=== PATIENT | female | born 1935 | race Caucasian/White ===

== ENCOUNTER 2020-08-13 08:31 | Outpatient (CLI) | payer MEDICARE, SELFPAY ==
--- NOTE | ~2020-08-13 | CT_ITS ---
EXAMINATION: CT chest high resolution [facility] EXAM DATE: 08/13/2020 09:08 INDICATION: ILD R91.1 - Solitary pulmonary nodule. TECHNIQUE: Spiral CT of the chest without contrast. HRCT. Axial, coronal and sagittal images were re viewed. Coronal maximum intensity pixel images of chest reviewed. The dose-length product (DLP) for this examination was 472.76 mGy-cm. The exposure was tailored according to patient size (auto mA ex posure control), and iterative reconstruction (ASIR) was used as additional dose reduction technique. Comparison is made to prior examination from 06/17/2018. FINDINGS: There is mild emphysema and bronchiectasis. No evidence of interlobular septal thickening on the HRCT. There are regions of linear scarring, and a right lower lobe calcified granuloma which a ppear unchanged. Previously described right middle lobe nodule may have some faint calcification now, consistent with granuloma. No suspicious pulmonary opacities. There are no pleural or pericardial e ffusions. Tracheobronchial tree is patent. There is no mediastinal, hilar or axillary lymphadenop athy. There is no pneumothorax. Heart normal in size. There is mild coronary arterial calcifica tion, arterial sclerosis. Upper abdomen is unremarkable. Severe mid thoracic dextroscoliosis. IMPRESSION: 1. Postinfectious residua. 2. Mild emphysema and bronchiectasis. 3. Dextroscoliosis. Reviewed, dictated and finalized at location A. ECTOR SET UP AND LAY OUT
== END 2020-08-13 08:32 | disposition home or self-care (01) ==
PROVIDERS: PCP Family Medicine; Visit Provider Nurse Practitioner Family
DX: R91.1 Solitary pulmonary nodule (principal); J84.10 Pulmonary fibrosis, unspecified; J43.9 Emphysema, unspecified; J47.9 Bronchiectasis, uncomplicated; M41.84 Other forms of scoliosis, thoracic region
CPT/HCPCS: 71250

== ENCOUNTER 2021-10-07 09:56 | Outpatient (CLI) | payer MEDICARE, SELFPAY | END 2021-10-07 09:57 | disposition home or self-care (01) | LOC: ANHAUDIO 09:57 | PROVIDERS: PCP Family Medicine; Referring Provider Otolaryngology; Visit Provider Otolaryngology | DX: H91.93 Unspecified hearing loss, bilateral (principal) | CPT/HCPCS: 92557; 92567 ==

== ENCOUNTER → 2021-10-25 09:55 | Outpatient (CLI) | payer MEDICARE, SELFPAY ==
[2021-10-25 20:22] LABS: SARS-CoV-2 RNA PCR Negative
== END ==
PROVIDERS: PCP Family Medicine; Visit Provider Physician Assistant
DX: Z20.822 Contact with and (suspected) exposure to COVID-19 (principal)
CPT/HCPCS: C9803; U0003; U0005

== ENCOUNTER 2022-03-04 13:53 | Outpatient (RCR) | payer MEDICARE, SELFPAY | END 2022-03-04 23:59 | disposition home or self-care (01) | LOC: ANHAUDIO 13:53 | PROVIDERS: PCP Family Medicine; Visit Provider Family Medicine | DX: Z46.1 Encounter for fitting and adjustment of hearing aid (principal) | CPT/HCPCS: 99199 ==

== ENCOUNTER → 2023-02-16 12:49 | Outpatient (CLI) | payer MEDICARE, SELFPAY ==
--- NOTE | ~2023-02-16 | XR_ITS ---
XR chest 2V 02/16/2023 13:14 Indication: Acute upper respiratory infection Procedure: PA and lateral views of the chest Comparison: 02/27/2016 Findings: Heart size is normal. There are bilateral interstitial infiltrates. No pleural effusion or pneumothorax. No acute osseous abnormality. There is scoliosis. No acute osseous abnormality. Impression: 1: Bilateral perihilar interstitial infiltrates, which may represent edema or pneumonia. Reviewed, dictated and finalized at location L. Impression: 1: Bilateral perihilar interstitial infiltrates, which may represent edema or p neumonia.
== END ==
PROVIDERS: PCP Internal Medicine; Visit Provider Internal Medicine
DX: J06.9 Acute upper respiratory infection, unspecified (principal); R91.8 Other nonspecific abnormal finding of lung field
CPT/HCPCS: 71046

== ENCOUNTER → 2023-02-24 15:05 | Outpatient (CLI) | payer MEDICARE, SELFPAY ==
--- NOTE | ~2023-02-24 | XR_ITS ---
EXAMINATION: XR chest 2V Exam Date/Time: 02/24/2023 15:15 CDT HISTORY: Pneumonia, unspecified organism Comparison: 02/16/2023. RESULT: Lines, tubes, and devices: None. Lungs and pleura: Stable diffuse reticular opacities and linear scar in the peripheral left lower lucero ng. Somewhat increasing reticulonodular opacities in the right upper and lower lungs as well as left lower lung. Cardiomediastinal silhouette: Stable. Other: No acute osseous or upper abdominal finding. IMPRESSION: Pulmonary opacities may represent bronchiolitis, as can be seen with atypical infection, asthma, aspi ration, and small airways disease, possibly overlying mild interstitial edema and/or chronic intersti tial lung disease. Reviewed, dictated and finalized at location K. IMPRESSION: Pulmonary opacities may represent bronchiolitis, as can be seen with atypical i nfection, asthma, aspiration, and small airways disease, possibly overlying mil d interstitial edema and/or chronic interstitial lung disease.
== END ==
PROVIDERS: PCP Internal Medicine Pulmonary Disease; Visit Provider Internal Medicine
DX: J18.9 Pneumonia, unspecified organism (principal)
CPT/HCPCS: 71046

== ENCOUNTER 2023-03-03 08:40 | Outpatient (CLI) | payer MEDICARE, SELFPAY ==
--- NOTE | 2023-03-23 08:00 | WPDSLEEPSTUD ---
Sleep Study Date of Study: 03/03/23 Ordering Provider: Yan Cartagena MD Interpreting Physician: Cheryl Melendez MD Sleep Study Type: CPAP Titration Height: 1.6 m Weight: 83.915 kg Body Mass Index: 32.8 Neck Circumference (inches): 15 Vernalis: 3 Reason for Sleep Study She is on CPAP [id number] with supplemental oxygen 3L/min O2. She had a nocturnal oximetry 02/19/2023 wearing CPAP 10 cm with a report saying that she was using O2 at 3 L/min. This showed desaturaiton to 73%, oxygen desaturation index of 31, and 4 hours 25 minutes spent with O2 saturation below 88%. She is referred to the sleep lab to see if she needs a higher pressure, more O2, or both. Sleep History Harmony Leung is an 87-year-old female with history of kyphoscoliosis, COPD, and MARCELINO who presented for an in-lab CPAP titration study. She had a split night PSG 06/30/2016 which revealed severe MARCELINO with AHI 75.8 and multiple oxygen desaturations. CPAP 10 cm H2O was recommended. She is currently compliant with CPAP 36pdA2B and supplemental oxygen 3L/min per night with recent compliance data in January 2023 showing 90-day overall AHI of 1.1. She never awakens from sleep short of breath. She rarely awakens at night with heartburn, belching or cough. She rarely has trouble sleeping when she has a cold. She never suddenly wakes up gasping for breath during the night. She never has breathing problems at night. She frequently sweats excessively at night. She occasionally notices her heart pounding or beating irregularly during the night. She never falls asleep during the day. She does not fall asleep involuntarily or while driving. She frequently experiences loss of muscle tone with strong emotion. She rarely feels paralyzed on waking or falling asleep. She never experiences vivid dreams upon waking or falling asleep. She does not feel afraid of going to sleep. She does not have nightmares. She never recalls her dreams. She frequently has thoughts racing through her mind. She occasionally feels sad or depressed. She occasionally feels anxiety or worry about things. She does not notice parts of her body jerk. She never kicks during the night. She frequently feels crawling or aching feelings in her legs. She never grinds her teeth or has morning jaw pain. She constantly feels bothered by pain during the day but is rarely awakened by pain during the night. She frequently wakes up feeling stiff in the morning, rarely wakes up with sore or achy muscles in the morning. She constantly wakes up with pain in her neck, spine, or joints. Normal bedtime is around 10pm on the weekdays and same on the weekends, taking sometimes several hours to fall asleep. She typically gets about 7 to 8 hours of sleep per night. Her wake up time is around 8am on the weekdays and same on the weekends. Her cat sometimes wakes her up at night, sometimes three times per night and she may be awake 10-15 minutes at a time. Habits: Former tobacco smoker. Drinks about 1 caffeinated beverage per day in the morning. No alcohol or recreational substances. PMFSH Past Medical History Medical History Acid reflux 1989 Cancer of blood vessel COPD (chronic obstructive pulmonary disease) 2014 Depression 2015 Disorder of thyroid 1983 Diverticulosis 1997 Hyperlipidemia 1996 Irritable bowel syndrome 1993 Parathyroid cyst Pneumonia 1995, 2014 Vaginal delivery X2 05/24/56 Female 7lbs 6oz 06/01/59 Male 7lbs 5oz Surgical History Surgical History H/O: hysterectomy 1982 History of bladder surgery 1993 Family History Family History Father Family history of thyroid disease, Onset Age: 89 Cerebrovascular accident, Onset Age: 89 Mother Family history of malignant neoplasm of stomach, Onset Age: 54 Social History Social
[2023-03-23 15:56] VITALS: BMI 32.8
== END 2023-03-04 07:42 | disposition home or self-care (01) ==
LOC: ANHCSM 08:41
PROVIDERS: PCP Internal Medicine Pulmonary Disease; Visit Provider Internal Medicine Pulmonary Disease
DX: G47.33 Obstructive sleep apnea (adult) (pediatric) (principal); G47.61 Periodic limb movement disorder; J96.11 Chronic respiratory failure with hypoxia
CPT/HCPCS: 95811

== ENCOUNTER 2023-03-12 12:23 | Outpatient (CLI) | payer MEDICARE, SELFPAY ==
[2023-03-12 12:45] VITALS: PULSE 88; O2SAT 86
[2023-03-12 12:50] VITALS: PULSE 87; O2SAT 87
[2023-03-12 12:55] VITALS: PULSE 86; O2SAT 88
[2023-03-12 13:00] VITALS: PULSE 84; O2SAT 91
[2023-03-12 13:05] VITALS: PULSE 104; O2SAT 90
[2023-03-12 13:15] VITALS: PULSE 88; O2SAT 91
--- NOTE | 2023-03-12 13:41 | ECHO_ITS ---
Patient Info Name: Harmony Leung Age: 87 years : 1935 Gender: Female Ht: 64 in Wt: 185 lbs BSA: 1.98 m2 HR: 84 bpm BP: 136 / 74 mmHg Technical Quality: Good Exam Date: 03/12/2023 1:48 PM Exam Location: [facility] Patient Status: Outpatient Admit Date: 03/12/2023 Staff Ordering Physician: Yan Cartagena MD Wet Process Technician: Barbara Guevara RDCS Attending Provider: Yan Cartagena MD Referring Physician: Mitzi ARTHUR; Exam Type: CA echo doppler color flow Study Info Indications R06.02 - Shortness of breath Complete two-dimensional, color flow and Doppler transthoracic echocardiogram is performed. Summary 1. Complete two-dimensional, color flow and Doppler transthoracic echocardiogram is performed. 2. Left ventricular chamber dimension is normal. 3. Calcified circumscribed mass measuring 0.5 cm x 0.7 cm attached to posterior of LV outflow tract. Consider GIOVANNA or cardiac MRI if clinically indicated. 4. Left ventricular systolic function is normal, estimated at 60-65%. 5. There is mild concentric increased left ventricular wall thickness. 6. The left ventricular diastolic function is grade I diastolic dysfunction. 7. E/e' 16 is elevated. 8. Global longitudinal strain is normal at -18.4%. 9. Left atrial chamber dimension is mildly enlarged. 10. There is mild aortic valve sclerosis. 11. The mitral valve has moderately calcified annulus. 12. No pulmonary hypertension, estimated pulmonary arterial systolic pressure is 20 mmHg. Left Ventricle E/e' 16 is elevated. Global longitudinal strain is normal at -18.4%. Calcified circumscribed mass measuring 0.5 cm x 0.7 cm attached to posterior of LV outflow tract. Consider GIOVANNA or cardiac MRI if clinically indicated. Left ventricular chamber dimension is normal. Left ventricular systolic function is normal, estimated at 60-65%. There is mild concentric increased left ventricular wall thickness. The left ventricular diastolic function is grade I diastolic dysfunction. Right Ventricle Right ventricular systolic function is normal and with normal TAPSE 2.6 cm. Right ventricular chamber dimension is normal. Left Atria Left atrial chamber dimension is mildly enlarged. Right Atria Right atrial chamber dimension is normal. Aortic Valve The aortic valve is trileaflet. There is mild aortic valve sclerosis. There is no aortic valve stenosis. There is no aortic valve regurgitation. Pulmonic Valve There is no pulmonic regurgitation. Mitral Valve The mitral valve has moderately calcified annulus. There is no mitral valve stenosis. There is no mitral valve regurgitation. Tricuspid Valve There is no tricuspid valve regurgitation. No pulmonary hypertension, estimated pulmonary arterial systolic pressure is 20 mmHg. Pericardium/Pleural There is no pericardial effusion. Inferior Vena Cava Normal inferior vena cava with >50% collapse upon inspiration consistent with normal right atrial pressure, 5 mmHg. Aorta The aortic root size at the sinus of Valsalva is normal. Left Ventricular Outflow Tract Name Value Normal LVOT 2D LVOT Diameter 2.0 cm LVOT Doppler LVOT Peak Gradient 7 mmHg LVOT Mean Gradient
--- NOTE | 2023-03-12 13:46 | HOMEO2EVAL ---
Evaluation was performed at [facility] Home Oxygen Evaluation RC: Home Oxygen (O2) Evaluation Start: 03/12/23 13:43 Freq: Status: Active Protocol: RPE Activity Type Activity Date Activity User E-sign Co-sign Detail Recorded Client Recorded Date Recorded By Document 03/12/23 12:45 [email or web address] [email or web address] 03/12/23 13:46 DJO Document 03/12/23 12:50 [email or web address] [email or web address] 03/12/23 13:46 DJO Document 03/12/23 12:55 [email or web address] [email or web address] 03/12/23 13:46 DJO Document 03/12/23 13:00 [email or web address] [email or web address] 03/12/23 13:46 DJO Document 03/12/23 13:05 [email or web address] [email or web address] 03/12/23 13:46 DJO Document 03/12/23 13:15 [email or web address] [email or web address] 03/12/23 13:46 DJO 03/12/23 03/12/23 03/12/23 12:45 12:50 12:55 Home O2 Evaluation [Oxygen] -Test Phase Resting Resting Resting -Oxygen Delivery Room Air Nasal Cannula Nasal Cannula -Oxygen Flow Rate (L/min) 1 2 [Pulse Oximetry] -Pulse Oximetry (90-100 %) 86 L 87 L 88 L [Pulse Rate] -Pulse Rate (60-100 beats/min) 88 87 86 [Evaluation] -Activity Tolerance [Charges] -Treatment Charges O2 Evaluation - Outpatient 03/12/23 03/12/23 03/12/23 13:00 13:05 13:15 Home O2 Evaluation [Oxygen] -Test Phase Resting Exercise Resting -Oxygen Delivery Nasal Cannula Nasal Cannula Nasal Cannula -Oxygen Flow Rate (L/min) 3 3 3 [Pulse Oximetry] -Pulse Oximetry (90-100 %) 91 90 91 [Pulse Rate] -Pulse Rate (60-100 beats/min) 84 104 H 88 [Evaluation] -Activity Tolerance Fair [Charges] -Treatment Charges
--- NOTE | 2023-03-12 15:12 | P.PCNPFT_ITS ---
PFT Procedure Performed PFT Procedure Performed Spirometry with Pre/Post Bronchodilator Plethysmography (Lung Vol) Diffusing Cap (DLCO) Flow Vol Loop PFT Interpretation This is a pulmonary function test with pre and post-bronchodilator spirometry, plethysmography and diffusing capacity. The test was performed and results interpreted in accordance with the 2019 and 2005 ATS/ERS Task Force guidelines respectively using the Global Lung Function Initiative-2012 reference equations. Patient demonstrated good effort and cooperation. Reproducibility criteria were met. The quality of the pre bronchodilator spirometry maneuver was Grade A and post bronchodilator spirometry maneuver was Grade A. Findings: Spirometry: Contour the inspiratory and expiratory flow tracing are normal. Pre bronchodilator FVC is 2.10 L, 89% predicted. The pre bronchodilator FEV1 is 1.55 L, 88% predicted. The pre bronchodilator FEV1: FVC ratio was 74%. The post bronchodilator FVC is 2.08 L, representing 1% decrease. The post bronchodilator FEV1 is 1.62 L, representing a 5% increase. The post bronchodilator FEV1: FVC ratio 78%. Plethysmography: The total lung capacity is 3.37 L, 66% predicted. The functional residual capacity is 1.68 L, 57% predicted. The residual volume is 1.27 L, 50% predicted. Diffusing capacity: The diffusing capacity unadjusted for hemoglobin and carboxyhemoglobin is 9.0, 49% predicted. The diffusing capacity adjusted for alveolar volume is 2.81, 70% predicted. In comparison to previous pulmonary function testing on 07/23/2016 the post bronchodilator FVC is unchanged from 2.12 L to 2.08 L. The post bronchodilator FEV1 is unchanged from 1.66 L to 1.62 L. The total lung capacity is unchanged from 3.55 L to 3.37 L. The functional residual capacity is unchanged from 1.55 L to 1.68 L. The residual volume is unchanged from 1.48 L to 1.27 L. The diffusing capacity unadjusted for hemoglobin and carboxyhemoglobin is decreased from 11.2 to 9.0. The diffusing capacity adjusted for alveolar volume is decreased from 3.69 to 2.81. Impression: There is a mild restrictive ventilatory abnormality with a normal FEV1. The spirometry is normal without evidence of an obstructive abnormality. There is no significant improvement after inhaling a single dose of albuterol. T he diffusing capacity unadjusted for hemoglobin and carboxyhemoglobin is moderately decreased and normalizes when adjusted for alveolar volume. When compared to prior pulmonary function testing on 07/23/2016 there has been a greater than anticipated time dependent decrease in the diffusing capacity with no significant change in the FVC, FEV1, total lung capacity, functional residual capacity or residual volume. Clinical correlation is recommended.
== END 2023-03-12 12:24 | disposition home or self-care (01) ==
PROVIDERS: PCP Internal Medicine Pulmonary Disease; Visit Provider Internal Medicine Pulmonary Disease
DX: R06.02 Shortness of breath (principal); M41.9 Scoliosis, unspecified; Z87.891 Personal history of nicotine dependence
CPT/HCPCS: 93306; 94060; 94618; 94726; 94729

== ENCOUNTER 2023-03-16 15:55 | Outpatient (CLI) | payer MEDICARE, SELFPAY ==
[2023-03-16 16:41] LABS: Basophils Percent Auto 0.6 % (0.2-1.2); Eosinophils Absolute Auto 0.1 K/mm3 (0-0.3); Eosinophils Percent Auto 2.3 % (0-4.4); Hematocrit 35.6 % (37.0-47.0); Hemoglobin 11.3 g/dL (12.0-15.0); Immature Granulocyte Absolute 0.02 K/mm3 (0.00-0.031); Immature Granulocyte Percent A 0.4 % (0-0.5); Lymphocytes Absolute Auto 1.56 K/mm3 (0.9-3.2); Mean Corpuscular HGB Conc 31.7 g/dl (32-36); Mean Corpuscular Hemoglobin 37.7 pg (26-34); Mean Corpuscular Volume 118.7 fl (80-100); Mean Platelet Volume 9.5 fl (7.4-10.4); Monocytes Absolute Auto 0.4 K/mm3 (0.1-0.6); Monocytes Percent Auto 7.8 % (2.6-8.5); Neutrophils Absolute Auto 2.8 K/mm3 (1.3-6.7); Neutrophils Percent Auto 56.9 % (45.5-73.1); Platelet Count Result 284 k/mm3 (150-375); Red Cell Distribution Width 13.5 % (11.5-14.5); White Blood Count 4.9 K/mm3 (4.5-10.0)
[2023-03-16 16:45] LABS: Alanine Aminotransferase 19 U/L (6-35); Alkaline Phosphatase 104 U/L (38-126); Anion Gap 3 mmol/L (8-16); Aspartate Amino Transferase 29 U/L (14-36); Bilirubin,Total 0.3 mg/dL (0.2-1.3); Blood Urea Nitrogen 20 mg/dL (7-17); Calcium 9.8 mg/dL (8.4-10.2); Carbon Dioxide 30 mmol/L (22-30); Chloride 104 mmol/L (98-107); Estimated Glomerular Filt Rate 52; Glucose 88 mg/dL (65-110); Potassium 4.4 mmol/L (3.4-5.0); Sodium 137 mmol/L (137-145)
[2023-03-16 19:39] LABS: Anisocytosis 1+ (NORMAL); Macrocytosis 1+ (NORMAL); Ovalocytes 1+ (NORMAL); Platelet Estimate Adequate (Adequate); Schistocytes None Seen (NORMAL)
== END 2023-03-16 15:56 | disposition home or self-care (01) ==
PROVIDERS: PCP Internal Medicine Pulmonary Disease; Visit Provider Internal Medicine Pulmonary Disease
DX: R06.02 Shortness of breath (principal); J44.9 Chronic obstructive pulmonary disease, unspecified
CPT/HCPCS: 36415; 80053; 85025

== ENCOUNTER 2023-04-16 00:07 | Day surgery (SDC) | payer MEDICARE, SELFPAY ==
[2023-04-15 12:45] VITALS: BMI 32.8
[2023-04-16] VITALS (8 sets, daily range): BP systolic 153–186; BP diastolic 70–102; PULSE 78–90; RESP 16–22; TEMP 36.6; O2SAT 91–100; BMI 32.8
--- NOTE | 2023-04-16 11:22 | ECHO_ITS ---
Patient Info Name: Harmony Leung Age: 87 years : 1935 Gender: Female Ht: 63 in Wt: 185 lbs BSA: 1.96 m2 HR: 90 bpm Technical Quality: Good Exam Date: 04/16/2023 12:01 PM Exam Location: [facility] Patient Status: Outpatient Admit Date: 04/16/2023 Staff Ordering Physician: Kendall Joy DO Pit Inspector: Barbara Guevara RDCS Attending Provider: Kendall Joy DO Referring Physician: Rufino ABDI; Exam Type: CA echo transesophageal Study Info Indications I51.89 - Other ill-defined heart diseases Complete two-dimensional, color flow and Doppler transesophageal study is performed. Procedure Details Risks/benefits/alternative to GIOVANNA discuss with patient and she gave informed consent. She was monitored electrocardiographically, vitals and pulse ox and everything remained stable. Cetacaine spray x 2 given to posterior oropharynx. Fentanly 25 mcg and Versed 1 mg IV given for conscious sedation. Multiple images obtained. GIOVANNA probe withdrawn and no blood noted on probe tip. Patient tolerated procedure well with no complications. Summary 1. Left ventricular chamber dimension is normal. 2. Left ventricular systolic function is normal with an ejection fraction of 60-65%. 3. No LVOT mass. This must be an artifact seen on transthoracic echo. 4. The left ventricular diastolic function is indeterminate as it was not assessed.. 5. Left atrial chamber dimension is mildly enlarged. 6. There is mild mitral valve regurgitation. 7. There is trace tricuspid valve regurgitation. Left Ventricle Left ventricular systolic function is normal with an ejection fraction of 60-65%. The left ventricular diastolic function is indeterminate as it was not assessed.. No LVOT mass. This must be an artifact seen on transthoracic echo. Left ventricular chamber dimension is normal. Right Ventricle Right ventricular chamber dimension is normal. Right ventricular systolic function is normal. Left Atria Left atrial chamber dimension is mildly enlarged. Right Atria Right atrial chamber dimension is normal. Aortic Valve The aortic valve is trileaflet. There is no aortic valve stenosis. There is no aortic valve regurgitation. Pulmonic Valve There is no pulmonic regurgitation. Mitral Valve There is no mitral valve stenosis. There is mild mitral valve regurgitation. Tricuspid Valve There is trace tricuspid valve regurgitation. Pericardium/Pleural There is no pericardial effusion. Inferior Vena Cava Inferior vena cava is not well visualized. Aorta The aortic root size at the sinus of Valsalva is normal. Report Signatures
--- NOTE | 2023-04-16 12:57 | SUR.OPER ---
1205 Time out completed, benzocaine spray applid via Dr. Joy. 1208 Probe introduced without difficulty. 1210 Sats dropping into the upper 80s, O2 increased to 6 liters. Suction applied with scant amt of white sputum. Probe removed per Dr. Joy. 1212 O2 Sats improved to 97%. Patient coughing thick white sputum. 1215 O2 sats holding, O2 via nassal cannula decreased back to 3 liters. Resting comfortably at this time.
--- NOTE | 2023-04-16 13:03 | SUR.PHASEII ---
1300 Taking ice chips without difficulty. Family at the bedside. ETCO2 charted in error for both the 1215 and 1230 times.
== END 2023-04-16 13:20 | disposition home or self-care (01) ==
PROVIDERS: PCP Internal Medicine Pulmonary Disease; Visit Provider Internal Medicine Cardiovascular Disease
PROC: (CPT 93312; principal; 2023-04-16 11:45)
DX: I11.9 Hypertensive heart disease without heart failure (principal); I34.0 Nonrheumatic mitral (valve) insufficiency; E78.5 Hyperlipidemia, unspecified; J44.9 Chronic obstructive pulmonary disease, unspecified; Z79.51 Long term (current) use of inhaled steroids
CPT/HCPCS: 93312; 93320; 93325; J2250; J3010; J7040

== ENCOUNTER 2024-05-05 15:45 | Observation (INO) | payer MEDICARE, SELFPAY ==
[2024-05-05] VITALS (15 sets, daily range): BP systolic 136–184; BP diastolic 62–80; PULSE 73–84; RESP 17–25; TEMP 36.1–36.4; O2SAT 95–100; BMI 32.0
--- NOTE | ~2024-05-05 | MR_ITS ---
EXAMINATION: MR brain/brain stem wo/w con DATE: 05/06/2024 09:17 INDICATION: Cerebrovascular accident. TECHNIQUE: Magnetic resonance imaging (MRI) of the brain and brainstem was performed without and with 17 mL MultiHance intravenous contrast. COMPARISON: Head CT 05/05/2024 FINDINGS: There is an acute infarct in posterior limb left internal capsule. There are scattered area s of nonspecific increased T2-weighted signal intensity in the cerebral white matter and kwasi. There is no intracranial hemorrhage or abnormal mass lesion. The ventricles are normal in size. There is mi ld mucosal thickening in the paranasal sinuses. The orbits are normal. There are bilateral mastoid ef fusions. IMPRESSION: 1. Acute infarct in posterior limb left internal capsule. 2. Moderate nonspecific cerebral white matter disease and pontine disease, which likely represents ch ronic small vessel ischemic disease. Reviewed, dictated and finalized at location A. IMPRESSION: 1. Acute infarct in posterior limb left internal capsule. 2. Moderate nonspecific cerebral white matter disease and pontine disease, whic h likely represents chronic small vessel ischemic disease.
--- NOTE | ~2024-05-05 | XR_ITS ---
EXAMINATION: XR chest 1V portable DATE: 05/05/2024 16:39 INDICATION: Stroke TECHNIQUE: frontal view of the chest was obtained. COMPARISON: Chest radiograph dated 02/24/[address] dated 08/13/2020 FINDINGS: Unchanged elevation the left hemidiaphragm. Pulmonary vascular congestion with increased interstitial pattern in the lower lungs suggesting mild pulmonary edema. Bradycardia airspace opacities at the me dial left lower lung zone which could represent atelectasis or pneumonia. No pleural effusion or pneu mothorax. Calcified nodule at the right cardiophrenic angle and calcified right hilar, mediastinal an d left axillary lymph nodes consistent with old granulomatous disease. Heart size is within normal li mits conifer AP technique. Visualized bones and soft tissues are unremarkable. IMPRESSION: 1. Pulmonary vascular congestion with increased interstitial pattern in the lower lungs suggesting mi ld pulmonary edema. 2. Elevation of left hemidiaphragm with airspace opacities at the medial left lower lung zone which c ould represent atelectasis or pneumonia. Reviewed, dictated and finalized at location A. IMPRESSION: 1. Pulmonary vascular congestion with increased interstitial pattern in the low er lungs suggesting mild pulmonary edema. 2. Elevation of left hemidiaphragm with airspace opacities at the medial left l ower lung zone which could represent atelectasis or pneumonia.
--- NOTE | ~2024-05-05 | CT_ITS ---
EXAMINATION: CTA BRAIN/CAROTID DATE: 05/05/2024 16:25 INDICATION: Dizziness TECHNIQUE: Computed tomographic angiography (CTA) of the head and neck was performed with 100 mL Omni paque-350 intravenous contrast. Multiplanar reconstructions and maximum intensity projection 3D-recon structions of the carotid arteries and of the intracranial arteries were created by the technologist on a separate workstation. Precontrast CT of the head was also obtained. Automated exposure control and iterative reconstruction technique were employed.The dose-length product was 1640.92 mGy-cm. COMPARISON: 11/07/2017 FINDINGS: Carotid arteries: Small amount of nonhemodynamically significant atherosclerotic plaque along the normal caliber aortic arch and the great vessels arising from the arch. There is also normal variant direct takeoff of the left vertebral artery from the aortic arch. There is 10% stenosis of the right carotid bulb relative to normal distal artery lumen diameter (NASCET criteria). There is small amount of atherosclerotic p laque with 0% stenosis of the left carotid bulb relative to normal distal artery lumen diameter. Ther e is a subtle bead on a string pattern of alternating minimal stenosis and dilation of the left and r ight internal carotid arteries above level of the carotid bulbs which could be seen with fibromuscula r dysplasia. Mosaic attenuation in the visualized upper lungs which appears due to atelectasis relate d to expiratory phase of imaging and small regions of subsegmental air trapping. Severe lower cervica l spondylosis. Head: No acute intracranial hemorrhage, acute infarction or abnormal extra axial fluid collection. There is moderate scattered white matter hypoattenuation consistent with chronic small vessel ischemic diseas e. Symmetric prominence of the sulci and and subarachnoid spaces overlying the convexities consistent with moderate age-appropriate diffuse cerebral volume loss. Ventricles are normal and symmetric. No mass/mass effect. The orbits, paranasal sinuses and mastoid air cells are normal. Intracranial arteries Small amount of nonhemodynamically significant atherosclerotic plaque along the bilateral carotid sip hons. There is no hemodynamically significant stenosis in the vertebral, basilar and internal carotid arteries. Vertebral arteries are codominant. There are no aneurysms identified. Both A1 and P1 segm ents are patent. The right P1 segment is diminutive with majority of vessel flow to the right posteri or cerebral artery supplied via a patent right posterior communicating artery. There is also a small patent left posterior communicating artery. Cerebral arterial arborization appears symmetric. IMPRESSION: 1. 10% stenosis of the right carotid bulb relative to normal distal artery lumen diameter (NASCET cri teria). 2. 0% stenosis of the left carotid bulb relative to normal distal artery lumen diameter. 3. Subtle bead on a string appearance to the bilateral internal carotid arteries above level of the c arotid bulbs suggestive of fibromuscular dysplasia without hemodynamically significant stenosis. 3. Normal aging brain with no acute intracranial process. 4. Unremarkable cerebral CT angiogram with no hemodynamic significant stenosis, aneurysm or thrombosi s. Reviewed, dictated and finalized at location A. IMPRESSION: 1. 10% stenosis of the right carotid bulb relative to normal distal artery lume n diameter (NASCET criteria). 2. 0% stenosis of the left carotid bulb relative to normal distal artery lumen diameter. 3. Subtle bead on a string appearance to the bilateral internal carotid arterie s above level of the carotid bulbs suggestive of fibromuscular dysplasia withou t hemodynamically significant stenosis. 3. Normal aging brain with no acute intracranial
--- NOTE | 2024-05-05 15:46 | ECG_ITS ---
Test Date: 2024-05-05 17:12:21 Measurements Intervals [place] Rate: 78 P: 54 IA: 141 QRS: 48 QRSD: 94 T: 56 QT: 389 QTc: 443 Interpretive Statements SINUS RHYTHM POSSIBLE RIGHT VENTRICULAR CONDUCTION DELAY [RSR (QR) IN V1/V2] BORDERLINE ECG No previous ECG available for comparison Electronically Signed On 05-05-2024 18:23:24 CDT by J Luis Osorio M.D.
[2024-05-05 15:59] LABS: Basophils Percent Auto 0.5 % (0.2-1.2); Eosinophils Absolute Auto 0.2 K/mm3 (0-0.3); Eosinophils Percent Auto 2.7 % (0-4.4); Hematocrit 34.7 % (37.0-47.0); Hemoglobin 11.6 g/dL (12.0-15.0); Immature Granulocyte Absolute 0.01 K/mm3 (0.00-0.031); Immature Granulocyte Percent A 0.2 % (0-0.5); Lymphocytes Absolute Auto 1.69 K/mm3 (0.9-3.2); Lymphocytes Percent Auto 30.8 % (18.3-44.2); Mean Corpuscular HGB Conc 33.4 g/dl (32-36); Mean Corpuscular Volume 122.6 fl (80-100); Monocytes Absolute Auto 0.3 K/mm3 (0.1-0.6); Monocytes Percent Auto 6.2 % (2.6-8.5); Neutrophils Absolute Auto 3.3 K/mm3 (1.3-6.7); Neutrophils Percent Auto 59.6 % (45.5-73.1); Platelet Count Result 296 k/mm3 (150-375); Red Blood Count 2.83 M/mm3 (4.2-5.4); Red Cell Distribution Width 13.2 % (11.5-14.5); White Blood Count 5.5 K/mm3 (4.5-10.0)
[2024-05-05 16:09] LABS: Alanine Aminotransferase 13 U/L (6-35); Alkaline Phosphatase 91 U/L (38-126); Anion Gap 7 mmol/L (4-12); Aspartate Amino Transferase 26 U/L (14-36); Bilirubin,Total 0.6 mg/dL (0.2-1.3); Blood Urea Nitrogen 27 mg/dL (7-17); Calcium 10.1 mg/dL (8.4-10.2); Carbon Dioxide 30 mmol/L (22-30); Chloride 102 mmol/L (98-107); Estimated Glomerular Filt Rate 47; Glucose 131 mg/dL (65-110); Potassium 4.2 mmol/L (3.4-5.0); Sodium 139 mmol/L (137-145)
[2024-05-05 16:19] LABS: Prothrombin Time 13.3 Seconds (11.1-14.7)
[2024-05-05 16:20] LABS: Partial Thromboplastin Time 26.2 Seconds (22.3-36.8)
[2024-05-05 16:21] LABS: Troponin I < 0.012 ng/mL (0.000-0.034)
[2024-05-05] MEDS: ASPIRIN 81 MG CHEWABLE TABLET 324 MG PO (18:09)
--- NOTE | 2024-05-05 18:29 | ED.NEUROSD ---
HPI - Neuro Symptoms/Deficit General Chief Complaint: Suspected CVA Stated Complaint: code stroke History of Present Illness HPI Narrative: This is an 88-year-old female presenting ED with a chief complaint of aphasia. Patient said the symptoms started yesterday morning when she woke up. Last known normal greater than 36 hours ago. Patient was visiting her who is in hospice and actively dying when the hospice center she has had no discharge symptoms and called an ambulance. Any extremity weakness although her legs are always weak. No other neurologic findings Related Data Home Medications Medication Instructions Recorded Confirmed diltiazem HCl 180 mg capsule,24 180 mg PO DAILY 10/11/19 03/01/24 hr,extended release hydroxyurea 500 mg capsule 500 mg PO DAILY 10/11/19 03/01/24 polyethylene glycol 3350 17 17 gm PO DAILY 10/11/19 03/01/24 gram/dose oral powder (Miralax) sertraline 100 mg tablet 100 mg PO DAILY 10/11/19 03/01/24 oxygen-air delivery systems 07/07/21 03/01/24 ferrous sulfate 325 mg (65 mg 325 mg PO DAILY 04/15/23 03/01/24 iron) tablet (FeroSul) albuterol sulfate 90 mcg/actuation inhalation 07/13/23 03/01/24 aerosol inhaler mecobalamin (vitamin B12) 1,000 1,000 mcg PO DAILY 02/09/24 03/01/24 mcg chewable tablet Allergies Allergy/AdvReac Type Severity Reaction Status Date / Time CEPHALEXIN MONOHYDRATE Allergy Intermediate RASH Uncoded 02/17/24 11:36 PMFSH Past Medical History Medical History Acid reflux 1989 Cancer of blood vessel COPD (chronic obstructive pulmonary disease) 2014 Cystocele Depression 2016 Disorder of thyroid 1983 Diverticulosis 1997 Hyperlipidemia 1996 Impacted cerumen of both ears Irritable bowel syndrome 1993 Parathyroid cyst Pneumonia 1995, 2014 Vaginal delivery X2 05/24/56 Female 7lbs 6oz 06/01/59 Male 7lbs 5oz Surgical History Surgical History H/O: hysterectomy 1982 History of bladder surgery 1993 Family History Family History Father Family history of thyroid disease, Onset Age: 89 Cerebrovascular accident, Onset Age: 89 Mother Family history of malignant neoplasm of stomach, Onset Age: 54 Social History Social History Social History: Caffeine-Coffee Smoking status: Former smoker Second hand tobacco smoke exposure: No Smoking end date: 10/04/86 Alcohol intake: never Substance use: never Substance use type: does not use Lack of Transportation: No Lack of Food: Never True Current Housing: I Have Housing Concerned About Future Housing: No Difficulty Paying Gas/Electric Bills: No Difficulty Paying for Meds: No Currently Unemployed: No Education: Associate Degree Difficulty w/ Childcare or Family Care: No Living arrangements: assisted living Spiritual care concerns: No Exam Narrative: APPEARANCE: No apparent distress. Head: atraumatic. EYES: EOMI, NOSE: Atraumatic NECK: Trachea midline RESPIRATORY: No increased rate of breathing clear to auscultation CARDIOVASCULAR: RRR, no peripheral edema ABDOMINAL: Non-distended soft nontender MUSCULOSKELETAl: No obvious deformities NEURO: Alert. Moving 4/4 extremities SKIN:: Warm, dry. Normal color PSYCHIATRIC: Normal affect NIH Stroke Scale/Score (NIHSS) from [employer] on 05/05/2024 All calculations should be rechecked by clinician prior to use RESULT SUMMARY: 1 points NIH Stroke Scale INPUTS: 1A: Level of consciousness ?> 0 = Alert; keenly responsive 1B: Ask month and age ?> 0 = Both questions right 1C: 'Blink eyes' & 'squeeze hands' ?> 0 = Performs both tasks 2: Horizontal extraocular movements ?> 0 = Normal 3: Visual patel ?> 0 = No visual loss 4: Facial palsy ?> 0 = Normal symmetry 5A:
--- NOTE | 2024-05-05 19:19 | PC.NURSE ---
Report received from BOBBI Kim. Assumed care of patient at this time.
--- NOTE | 2024-05-05 21:10 | PC.NURSE ---
Patient brief changed. Patient able to assist.
--- NOTE | 2024-05-05 22:33 | ADMGEN ---
This patient, Harmony Leung, was admitted to Medical Room 348-01. Patient/family oriented to hospital policies and general routines including ID bracelet, bed and alarms, visiting hours, pain management, procedures, bathroom and other care routines, personal items, smoking policy, room service/diet, and visiting hours. Information on how to activate the Rapid Response Team has been discussed. Patient/Family are encouraged to report perceived risks to care and to ask questions if they do not understand what they are told or what they should do.
--- NOTE | 2024-05-05 23:51 | PM.IMHP ---
H&P: HPI History of Present Illness Date/Time: 05/05/24 22:40 Chief Complaint: Difficulty speaking Narrative: 88-year-old female with a past medical history of obesity, hypothyroidism, COPD on chronic oxygen, diastolic dysfunction, and depression who presented to the ER from independent living facility due to difficulties with aphasia. Symptoms started on the morning of the . The patient did not know what the symptoms were caused by but in the that she had had a stroke so she did not come in for evaluation. The patient reports that for the last 2 days she has noticed that she is drooling from the right side of her mouth. She is having some trouble with getting correct words out. She also reports that her leg is been feeling weak but denies dropping anything. She thinks that her leg weakness is due to her chronic hip pain. She denies any coughing with eating but is getting frustrated with being able to control her secretions from running out of her mouth. She is getting frustrated because she cannot express the appropriate word at times. She is otherwise alert and oriented. She does have history of uterine prolapse and cystocele for which she uses a pessary. She occasionally has urinary incontinence but denies any acute changes in urinary frequency. She does report that she has frequent constipation but this is usually relieved by eating a salad at which time she then usually has large amount of diarrhea and gas. She has not had a bowel movement in 2 days. She does wear her oxygen chronically and denies any increased shortness of breath from baseline. She has not been having any chest pain. She does report some recent palpitations in her left chest. Review of Systems Review of Systems: Review of systems was attempted but was somewhat limited due to difficulties with aphasia and word substitution. 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 COPD (chronic obstructive pulmonary disease) 2014 COPD with asthma Cystocele Depression 2016 Diastolic dysfunction Echocardiogram March 2023 Diverticulosis 1998 Hearing loss, bilateral Hyperlipidemia 1996 Hypothyroidism (~1982) Irritable bowel syndrome 1993 Mass of left cardiac ventricle MARCELINO (obstructive sleep apnea) Parathyroid cyst Pneumonia 1995, 2014 Smoldering multiple myeloma Vaginal delivery X2 05/24/56 Female 7lbs 6oz 06/01/59 Male 7lbs 5oz Vaginal prolapse Surgical History Surgical History H/O: hysterectomy 1982 History of bladder surgery 1993 Family History Family History Father Family history of thyroid disease, Onset Age: 89 Cerebrovascular accident, Onset Age: 89 Mother Family history of malignant neoplasm of stomach, Onset Age: 54 Social History Social History (Updated 05/06/24 @ 01:09 by Latosha Sherwood DO) Social History: The patient is . Her is currently on hospice for the last couple of weeks. He she is still living in assisted living. Code status: DNR/DNI Healthcare power of reject opener and filler: Michelle Hou (daughter) Smoking packs per day: 1 Smoking cigarettes per day: 20.0 Years smoked: 34 Smoking pack-years: 34.00 Smoking status: Former smoker Second hand tobacco smoke exposure: No Smoking end date: 10/04/86 Alcohol intake: never Substance use: never Substance use type: does not use Do You Feel Safe in your Home?: Yes Lack of Transportation: No Lack of Food: Never True Current Housing: I Have Housing Concerned About Future Housing: No Difficulty Paying Gas/Electr
[2024-05-06] VITALS (14 sets, daily range): BP systolic 150–168; BP diastolic 65–85; PULSE 72–93; RESP 18–20; TEMP 36.1–36.6; O2SAT 95–98
--- NOTE | 2024-05-06 | ECHO_ITS ---
Patient Info Name: Harmony Leung Age: 88 years : 1935 Gender: Female Ht: 64 in Wt: 186 lbs BSA: 1.98 m2 HR: 72 bpm BP: 157 / 65 mmHg Heart Rhythm: Sinus Rhythm Technical Quality: Good Exam Date: 05/06/2024 9:55 AM Exam Location: Echo Lab Patient Status: Outpatient Admit Date: 05/05/2024 Staff Ordering Physician: Latosha Sherwood DO Casing Soaker: Chaim Mejia RDCS Attending Provider: Helena Mcgraw APRN Referring Physician: Kaela PEREZ; Exam Type: CA echo doppler w bubble study Study Info Indications - CVA Complete two-dimensional, color flow and Doppler transthoracic echocardiogram is performed with agitated saline. Contrast/Agitated Saline Contrast/Ag. Saline: Agitated Saline Amount: 9.00 ml Existing IV Access: Yes Summary 1. Mild concentric LVH with good systolic function and grade 1 diastolic noncompliance. 2. Mildly enlarged left atrium. 3. Small amount of aortic and mitral regurgitation. 4. Saline contrast injection demonstrates no shunt. 5. Compared to exam from last year there are no changes. Left Ventricle Left ventricular chamber dimension is normal. Left ventricular systolic function is normal, estimated at 60-65%. There is mild concentric increased left ventricular wall thickness. The left ventricular diastolic function is grade I diastolic dysfunction. Right Ventricle Right ventricular chamber dimension is normal. Left Atria Left atrial chamber dimension is mildly enlarged. Right Atria Right atrial chamber dimension is normal. Atrial Septum Intact interatrial septum visualized by agitated saline imaging. Aortic Valve The aortic valve is normal. There is trace aortic valve regurgitation. Pulmonic Valve The pulmonic valve is normal. Mitral Valve The mitral valve has normal leaflets. There is trace mitral valve regurgitation. Tricuspid Valve The tricuspid valve leaflets are normal. Pericardium/Pleural The pericardium appears normal. Aorta The aortic root size at the sinus of Valsalva is normal. Left Ventricular Outflow Tract Name Value Normal LVOT 2D LVOT Diameter 2.1 cm LVOT Doppler LVOT Peak Gradient 6 mmHg LVOT Mean Gradient 3 mmHg LVOT VTI 27 cm LVOT VTI/AV VTI Ratio 0.7 LVOT Stroke Volume 91 ml LVOT CO 7.2 l/min LVOT CI 3.6 l/min/m2 Pulmonic Valve Name Value Normal PV Doppler PV Peak Gradient 3 mmHg PV Regurgitation Doppler [place] Peak End Diastolic Velocity 149 cm/s Mitral Valve Name Value Norm
[2024-05-06 05:17] LABS: Cholesterol 231 mg/dL (0-200); HDL Direct 35 mg/dL; Triglycerides 207 mg/dL (<150)
[2024-05-06 05:28] LABS: LDL Cholesterol Direct 141 mg/dL
[2024-05-06] MEDS: LEVOTHYROXINE SODIUM 112 MCG TABLET PO (07:05)
[2024-05-06] MEDS: FLUTICASONE/UMECLIDIN/VILANTER 100-62.5-25 MCG ELLIPTA 1 PUFF INHALATION (07:20)
[2024-05-06] MEDS: HYDROXYUREA (*CHEMO) 500 MG CAPSULE PO (08:35)
[2024-05-06] MEDS: SERTRALINE HCL 50 MG TABLET 100 MG PO (08:35)
[2024-05-06] MEDS: ASPIRIN 81 MG ENTERIC TABLET PO (08:35)
[2024-05-06] MEDS: CYANOCOBALAMIN 1,000 MCG TABLET 1000 MCG PO (08:35)
[2024-05-06] MEDS: dilTIAZem HCL CD 180 MG CAP.24HR PO (08:36)
[2024-05-06 11:48] LABS: Hemoglobin A1C 5.4 % (<5.7)
[2024-05-06] MEDS: FERROUS SULFATE 325 MG TABLET DR PO (12:58)
--- NOTE | 2024-05-06 13:24 | PCSTNOTE ---
Please refer to the Bedside Swallow Evaluation in the EMR. Please note, silent aspiration cannot be ruled out at bedside.
[2024-05-06] MEDS: CLOPIDOGREL BISULFATE 75 MG TABLET PO (13:40)
[2024-05-06] MEDS: ROSUVASTATIN 20 MG TABLET 40 MG PO (13:40)
[2024-05-06 13:44] LABS: Free T4 Free Thyroxine 0.97 ng/mL (0.78-2.19)
--- NOTE | 2024-05-06 15:12 | PM.IMPN ---
Progress Note: A&P Assessment and Plan (1) MARCELINO (obstructive sleep apnea): Code(s): G47.33 - Obstructive sleep apnea (adult) (pediatric) Status: Acute (2) CVA (cerebral vascular accident): Qualifiers: CVA mechanism: unspecified Qualified Code(s): I63.9 - Cerebral infarction, unspecified Code(s): I63.9 - Cerebral infarction, unspecified Status: Acute (3) Hypertension: Code(s): I10 - Essential (primary) hypertension Status: Acute Plan CVA Neuro check q.4 hour for the 1st 24 hours. gis database administrator and telemetry continuously. Blood pressure management. -Keep the systolic blood pressure more than 200 or diastolic more than 110. Then lower blood pressure by 15% within the 1st 24 hours. MRI of the brain without contrast. Acute infarct in the posterior limb left internal capsule Echocardiogram with bubble study shows no shunting PT/OT/ST eval and treat. Check for LDL and hemoglobin A1c. Add statins 40 mg q.day, aspirin 81 mg g q.day/Plavix HX HTN: Stable will resume home medications HX HLD: Started Crestor HX anemia: Resumed Iron HX hypothyroidism: elevated TSH/T4 pending Code status: Full code per patient DVT prophylaxis: SCD Stress ulcer prophylaxis: Protonix 40 daily PT/OT notes: PT/OT/ST pending Disposition: Patient continues admission for acute CVA PT/OT/CT pending recommendations Time Spent With Patient Time with patient: 15 - 25 minutes Subjective Date/time seen: 05/06/24 15:12 Interval history: Admission: Difficulty speaking Narrative: 88-year-old female with a past medical history of obesity, hypothyroidism, COPD on chronic oxygen, diastolic dysfunction, and depression who presented to the ER from independent living facility due to difficulties with aphasia. Symptoms started on the morning of the . The patient did not know what the symptoms were caused by but in the that she had had a stroke so she did not come in for evaluation. The patient reports that for the last 2 days she has noticed that she is drooling from the right side of her mouth. She is having some trouble with getting correct words out. She also reports that her leg is been feeling weak but denies dropping anything. She thinks that her leg weakness is due to her chronic hip pain. She denies any coughing with eating but is getting frustrated with being able to control her secretions from running out of her mouth. She is getting frustrated because she cannot express the appropriate word at times. She is otherwise alert and oriented. She does have history of uterine prolapse and cystocele for which she uses a pessary. She occasionally has urinary incontinence but denies any acute changes in urinary frequency. She does report that she has frequent constipation but this is usually relieved by eating a salad at which time she then usually has large amount of diarrhea and gas. She has not had a bowel movement in 2 days. She does wear her oxygen chronically and denies any increased shortness of breath from baseline. She has not been having any chest pain. She does report some recent palpitations in her left chest. 05/06/2024: Assumed Care Patient still with expressive aphasia and mild facial droop. Patient denies CP, SOB, dizziness or any syncopal episodes. MRI brain did show an acute infarct of the posterior limb left internal capsule. Speech therapy, PT and OT all ordered. Patient was requesting water based statin started her on Crestor, Plavix and ASA. Review of Systems Review of Systems: All systems reviewed & are unremarkable except as noted in HPI and below Exam Narrative: Physical Exam: GENERAL: Alert and oriented x 3. No acute distress. EYES: EOMI. No scleral icterus. PERRLA. HEENT: Moist mucous membranes. LUNGS: Clear to auscultation bilaterally. No accessory muscle use. CARDIOVASCULAR: Regular rate and rhythm. No murmur
[2024-05-06] MEDS: ONDANSETRON INJ 4 MG/2 ML VIAL IV PUSH (16:21)
[2024-05-07] VITALS: PULSE 84
[2024-05-07 04:00] VITALS: PULSE 86
[2024-05-07 05:09] VITALS: BP 163/70; PULSE 95; RESP 18; TEMP 36.4; O2SAT 94
[2024-05-07] MEDS: FLUTICASONE/UMECLIDIN/VILANTER 100-62.5-25 MCG ELLIPTA 1 PUFF INHALATION (06:09)
[2024-05-07 06:11] VITALS: PULSE 80; O2SAT 97
[2024-05-07] MEDS: LEVOTHYROXINE SODIUM 112 MCG TABLET PO (06:55)
[2024-05-07 07:46] LABS: Hematocrit 33.1 % (37.0-47.0); Hemoglobin 10.9 g/dL (12.0-15.0); Mean Corpuscular HGB Conc 32.9 g/dl (32-36); Mean Corpuscular Hemoglobin 39.9 pg (26-34); Mean Corpuscular Volume 121.2 fl (80-100); Mean Platelet Volume 9.3 fl (7.4-10.4); Platelet Count Result 262 k/mm3 (150-375); Red Blood Count 2.73 M/mm3 (4.2-5.4); Red Cell Distribution Width 12.7 % (11.5-14.5); White Blood Count 6.3 K/mm3 (4.5-10.0)
[2024-05-07 07:53] LABS: Alanine Aminotransferase 12 U/L (6-35); Albumin Level 3.7 g/dL (3.5-5.1); Alkaline Phosphatase 86 U/L (38-126); Anion Gap 4 mmol/L (4-12); Aspartate Amino Transferase 24 U/L (14-36); Bilirubin,Total 0.6 mg/dL (0.2-1.3); Blood Urea Nitrogen 19 mg/dL (7-17); Calcium 9.9 mg/dL (8.4-10.2); Carbon Dioxide 30 mmol/L (22-30); Chloride 103 mmol/L (98-107); Estimated CRCL calculation 35 ml/min; Estimated Glomerular Filt Rate 52; Glucose 104 mg/dL (65-110); Potassium 4.4 mmol/L (3.4-5.0); Sodium 137 mmol/L (137-145)
[2024-05-07 08:00] VITALS: PULSE 85
[2024-05-07] MEDS: NIFEdipine 30 MG TAB.ER.24 PO (08:28)
[2024-05-07] MEDS: CYANOCOBALAMIN 1,000 MCG TABLET 1000 MCG PO (08:28)
[2024-05-07] MEDS: ROSUVASTATIN 20 MG TABLET 40 MG PO (08:28)
[2024-05-07] MEDS: SERTRALINE HCL 50 MG TABLET 100 MG PO (08:29)
[2024-05-07] MEDS: CLOPIDOGREL BISULFATE 75 MG TABLET PO (08:29)
[2024-05-07] MEDS: dilTIAZem HCL CD 180 MG CAP.24HR PO (08:29)
[2024-05-07] MEDS: HYDROXYUREA (*CHEMO) 500 MG CAPSULE PO (08:29)
[2024-05-07] MEDS: ASPIRIN 81 MG ENTERIC TABLET PO (08:29)
--- NOTE | 2024-05-07 11:19 | PM.DS ---
DS: Admitting Diagnosis Discharge Date 05/07/2024 Admitting Diagnosis CVA DS: Discharge Diagnosis Discharge Diagnosis (1) MARCELINO (obstructive sleep apnea): Code(s): G47.33 - Obstructive sleep apnea (adult) (pediatric) Status: Acute (2) CVA (cerebral vascular accident): Qualifiers: CVA mechanism: unspecified Qualified Code(s): I63.9 - Cerebral infarction, unspecified Code(s): I63.9 - Cerebral infarction, unspecified Status: Acute (3) Hypertension: Code(s): I10 - Essential (primary) hypertension Status: Acute Plan CVA Neuro check q.4 hour for the 1st 24 hours. professional housing consultant and telemetry continuously. Blood pressure management. -Keep the systolic blood pressure more than 200 or diastolic more than 110. Then lower blood pressure by 15% within the 1st 24 hours. MRI of the brain without contrast. Acute infarct in the posterior limb left internal capsule Echocardiogram with bubble study shows no shunting PT/OT/ST eval and treat. Check for LDL and hemoglobin A1c. Add statins 40 mg q.day, aspirin 81 mg g q.day/Plavix HX HTN: Stable will resume home medications HX HLD: Started Crestor HX anemia: Resumed Iron HX hypothyroidism: elevated TSH/T4 pending Code status: Full code per patient DVT prophylaxis: SCD Stress ulcer prophylaxis: Protonix 40 daily PT/OT notes: PT/OT/ST pending Disposition: Patient discharged to assisted living DS: Summary Hospital Course Reason for hospitalization: CVA Hospital Course: Admission: Difficulty speaking Narrative: 88-year-old female with a past medical history of obesity, hypothyroidism, COPD on chronic oxygen, diastolic dysfunction, and depression who presented to the ER from independent living facility due to difficulties with aphasia. Symptoms started on the morning of the . The patient did not know what the symptoms were caused by but in the that she had had a stroke so she did not come in for evaluation. The patient reports that for the last 2 days she has noticed that she is drooling from the right side of her mouth. She is having some trouble with getting correct words out. She also reports that her leg is been feeling weak but denies dropping anything. She thinks that her leg weakness is due to her chronic hip pain. She denies any coughing with eating but is getting frustrated with being able to control her secretions from running out of her mouth. She is getting frustrated because she cannot express the appropriate word at times. She is otherwise alert and oriented. She does have history of uterine prolapse and cystocele for which she uses a pessary. She occasionally has urinary incontinence but denies any acute changes in urinary frequency. She does report that she has frequent constipation but this is usually relieved by eating a salad at which time she then usually has large amount of diarrhea and gas. She has not had a bowel movement in 2 days. She does wear her oxygen chronically and denies any increased shortness of breath from baseline. She has not been having any chest pain. She does report some recent palpitations in her left chest. 05/06/2024: Assumed Care Patient still with expressive aphasia and mild facial droop. Patient denies CP, SOB, dizziness or any syncopal episodes. MRI brain did show an acute infarct of the posterior limb left internal capsule. Speech therapy, PT and OT all ordered. Patient was requesting water based statin started her on Crestor, Plavix and ASA. 05/07/2024: DISCHARGED Patient was seen by speech, Physical therapy Occupational therapy who recommended continued speech therapy 3 to 5 times a week for 2 weeks patient was ambulatory with walker back to baseline. Echo was completed that had shown no shunting. Family was at bedside and updated on discharge and discharge instructions. Patient still with mild expressive aphasia no difficulty sw
--- NOTE | 2024-05-07 12:12 | PC.NURSE ---
Pharmacy contacted patient right before discharge to alert her that she had statins listed as an allergy in their files and hospitalist had ordered rosuvastatin. Patient and daughter said they would follow up with primary care doctor for further recommendations. Hospitalist made aware
== END 2024-05-07 12:00 ==
LOC: ANHED 20:01 → ANH3MED 21:19
PROVIDERS: Admitting Provider Internal Medicine; Emergency Provider Emergency Medicine; PCP Internal Medicine Pulmonary Disease; Visit Provider Nurse Practitioner Family
DX: I63.9 Cerebral infarction, unspecified (principal); R47.01 Aphasia; J96.11 Chronic respiratory failure with hypoxia; R01.1 Cardiac murmur, unspecified; I11.9 Hypertensive heart disease without heart failure; G47.33 Obstructive sleep apnea (adult) (pediatric); Z99.81 Dependence on supplemental oxygen; J44.9 Chronic obstructive pulmonary disease, unspecified; D64.9 Anemia, unspecified; K21.9 Gastro-esophageal reflux disease without esophagitis; E78.5 Hyperlipidemia, unspecified; F32.A Depression, unspecified; R29.704 NIHSS score 4; E03.9 Hypothyroidism, unspecified; Z87.891 Personal history of nicotine dependence; Z79.51 Long term (current) use of inhaled steroids; Z79.899 Other long term (current) drug therapy
CPT/HCPCS: 36415; 70496; 70498; 70553; 71045; 80053; 80061; 83036; 84439; 84443; 84484; 85025; 85027; 85610; 85730; 92523; 92610; 93005; 93306; 94640; 96375; 97161; 97165; 99285; A9270; A9577; G0378; J2405; Q9967

== ENCOUNTER 2024-07-12 08:03 | Emergency (ER) | payer MEDICARE, SELFPAY ==
--- NOTE | ~2024-07-12 | XR_ITS ---
EXAMINATION: XR hip BI 2V w AP pelvis DATE: 07/12/2024 08:55 INDICATION: Hip pain. Fall. TECHNIQUE: An anteroposterior view of the pelvis and 2 views of each hip were obtained. COMPARISON: Pelvis and hip radiographs 11/07/2017 FINDINGS: There is lumbar levocurvature and moderate spondylosis. No fracture. There is moderate oste oarthritis of the hips. Osteitis pubis is noted. There are suture anchors in the parasymphyseal pubis on either side. IMPRESSION: 1. Moderate osteoarthritis of the hips. Reviewed, dictated and finalized at location A.
--- NOTE | ~2024-07-12 | CT_ITS ---
EXAMINATION: CT brain wo con DATE: 07/12/2024 08:48 INDICATION: Head injury. TECHNIQUE: Computed tomography (CT) of the head was performed without intravenous contrast. The mA wa s adjusted according to patient size. Iterative reconstruction technique was employed. The dose-lengt h product was 681.00 mGy-cm. COMPARISON: Head CT 05/05/2024 FINDINGS: There are scattered areas of low attenuation in the cerebral white matter. There is no intr acranial hemorrhage, acute infarction, or abnormal intracranial mass lesion. The ventricles are kirstin l in size. The orbits are normal. There is mild mucosal thickening in the paranasal sinuses. There is a left otomastoid effusion. IMPRESSION: 1. Stable moderate nonspecific cerebral white matter disease, which likely represents chronic small v essel ischemic disease. Reviewed, dictated and finalized at location A. IMPRESSION: 1. Stable moderate nonspecific cerebral white matter disease, which likely repr esents chronic small vessel ischemic disease.
[2024-07-12 08:03] VITALS: BP 166/96; PULSE 98; RESP 26; TEMP 36.4; O2SAT 96
[2024-07-12 08:32] LABS: Basophils Percent Auto 0.6 % (0.2-1.2); Eosinophils Percent Auto 0.2 % (0-4.4); Hemoglobin 11.7 g/dL (12.0-15.0); Immature Granulocyte Absolute 0.03 K/mm3 (0.00-0.031); Immature Granulocyte Percent A 0.6 % (0-0.5); Lymphocytes Absolute Auto 0.36 K/mm3 (0.9-3.2); Lymphocytes Percent Auto 6.9 % (18.3-44.2); Mean Corpuscular HGB Conc 33.4 g/dl (32-36); Mean Corpuscular Hemoglobin 41.3 pg (26-34); Mean Corpuscular Volume 123.7 fl (80-100); Mean Platelet Volume 9.5 fl (7.4-10.4); Monocytes Absolute Auto 0.1 K/mm3 (0.1-0.6); Monocytes Percent Auto 2.7 % (2.6-8.5); Neutrophils Absolute Auto 4.7 K/mm3 (1.3-6.7); Platelet Count Result 291 k/mm3 (150-375); Red Blood Count 2.83 M/mm3 (4.2-5.4); White Blood Count 5.2 K/mm3 (4.5-10.0)
[2024-07-12 08:53] LABS: Add Urine Microscopic? YES; Appearance Urine Clear (Clear); Bacteria Urine None Seen /hpf; Bilirubin Urine Negative (Negative); Blood Urine Negative (Negative); Color Urine Yellow (Yellow); Glucose Urine UA 3+ mg/dL (Negative); Hyaline Casts Urine Present /lpf; Ketones Urine Negative (Negative); Leukocyte Esterase Ur Trace LEU/UL (Negative); Need Manual Microscopic Reviewed; Nitrate Urine Negative (Negative); Protein Urine 1+ mg/dL (Negative); RBC Urine 0-2 /hpf (0-2); Specific Grav Ur 1.022 (1.001-1.035); Squamous Epithelial Cell Urine None Seen /hpf (Few); Urobilinogen Urine 0.2 mg/dL (<2.0); WBC Urine 0-5 /hpf (0-3); pH Urine 5.5 (5.0-9.0)
[2024-07-12 09:00] LABS: Alanine Aminotransferase 13 U/L (6-35); Albumin Level 4.5 g/dL (3.5-5.1); Alkaline Phosphatase 112 U/L (38-126); Anion Gap 7 mmol/L (4-12); Aspartate Amino Transferase 40 U/L (14-36); Bilirubin,Total 0.9 mg/dL (0.2-1.3); Blood Urea Nitrogen 34 mg/dL (7-17); Carbon Dioxide 27 mmol/L (22-30); Chloride 103 mmol/L (98-107); Creatine Kinase 78 U/L (30-135); Estimated CRCL calculation 35 ml/min; Estimated Glomerular Filt Rate 52; Glucose 120 mg/dL (65-110); Potassium 4.7 mmol/L (3.4-5.0); Sodium 137 mmol/L (137-145)
[2024-07-12 09:06] LABS: Macrocytosis 1+ (NORMAL); Platelet Estimate Adequate (Adequate); Schistocytes None Seen
[2024-07-12] MEDS: SODIUM CHLORIDE 0.9% IV 1,000 ML 999 ML IV CONT (09:25)
[2024-07-12 09:26] VITALS: BP 173/92; PULSE 97; RESP 24; O2SAT 95
[2024-07-12] MEDS: MORPHINE SULFATE (*CRX) 4 MG/ML INJ 2 MG IV PUSH (09:26)
--- NOTE | 2024-07-12 10:19 | ED.GENADULT ---
HPI - General Adult General Chief complaint: Fall Stated complaint: FALL BILATERAL HIP PAIN Time Seen by Provider: 07/12/24 08:04 History of Present Illness HPI narrative: Patient is an 88-year-old female who presents ER after suffering a fall from bed. She tried to get up to use restroom and felt weak and fell to the ground. She did strike her head. No LOC. She is on Plavix. She was too weak to stand back up. She has pain in her right inguinal region and also reported hip pain bilaterally. No additional complaints at this time. Denies urinary frequency urgency or dysuria. No abdominal discomfort. Typically walks with a walker. Related Data Home Medications Medication Instructions Recorded Confirmed diltiazem HCl 180 mg capsule,24 180 mg PO DAILY 10/11/19 05/05/24 hr,extended release hydroxyurea 500 mg capsule 500 mg PO DAILY 10/11/19 05/05/24 polyethylene glycol 3350 17 17 gm PO DAILY 10/11/19 05/05/24 gram/dose oral powder (Miralax) sertraline 100 mg tablet 100 mg PO DAILY 10/11/19 05/05/24 oxygen-air delivery systems 07/07/21 05/06/24 ferrous sulfate 325 mg (65 mg 325 mg PO DAILY 04/15/23 05/05/24 iron) tablet (FeroSul) albuterol sulfate 90 mcg/actuation 2 inh inhalation Q6H PRN Wheezing 07/13/23 05/05/24 aerosol inhaler mecobalamin (vitamin B12) 1,000 1,000 mcg PO DAILY 02/09/24 05/05/24 mcg chewable tablet fluticasone fur. 100 mcg-umeclid 1 inh inhalation DAILY 05/05/24 05/05/24 62.5 mcg-vilant 25 mcg inhalat.powder (Trelegy Ellipta) hydrocodone 5 mg-acetaminophen 325 1 tablet PO Q6H PRN Pain (Scale 05/05/24 05/05/24 mg tablet Score 4-6) Allergies Allergy/AdvReac Type Severity Reaction Status Date / Time simvastatin Allergy Muscle Pain Verified 07/12/24 08:14 CEPHALEXIN MONOHYDRATE Allergy Intermediate RASH Uncoded 07/12/24 08:14 Review of Systems Review of Systems: All systems reviewed & are unremarkable except as noted in HPI and below Constitutional: Constitutional: Reports no additional constitutional complaints ENT: Reports system reviewed and no additional complaints, except as documented Cardiovascular: Cardiovascular: Reports no additional cardiovascular complaints Respiratory: Respiratory: Reports no additional respiratory complaints Genitourinary: Genitourinary: Reports no additional female genitourinary complaints Musculoskeletal: Musculoskeletal: Denies back pain, Reports arthralgias, Denies joint swelling and Denies muscle cramps Neurologic: Reports system reviewed and no additional complaints, except as documented [facility] Past Medical History Medical History Acid reflux 1989 Cancer of blood vessel Chronic hypoxic respiratory failure, on home oxygen therapy Chronic myeloproliferative disease 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 COPD (chronic obstructive pulmonary disease) 2014 COPD with asthma Cystocele Depression 2016 Diastolic dysfunction Echocardiogram March 2023 Diverticulosis 1998 Hearing loss, bilateral Hyperlipidemia 1996 Hypothyroidism (~1982) Irritable bowel syndrome 1993 Mass of left cardiac ventricle MARCELINO (obstructive sleep apnea) Parathyroid cyst Pneumonia 1995, 2014 Smoldering multiple myeloma Vaginal delivery X2 05/24/56 Female 7lbs 6oz 06/01/59 Male 7lbs 5oz Vaginal prolapse Surgical History Surgical History H/O: hysterectomy 1981 History of bladder surgery 1993 Family History Family History Father Family history of thyroid disease, Onset Age: 89 Cerebrovascular accident, Onset Age: 89 Mother Family history of malignant neoplasm of stomach, Onset Age: 54 Social History Social History Social History: The patie
[2024-07-12 11:22] VITALS: BP 162/82; PULSE 95; RESP 18; TEMP 36.8; O2SAT 100
[2024-07-12 12:01] VITALS: BP 159/82; PULSE 95; RESP 20; O2SAT 100
[2024-07-12 12:31] VITALS: BP 146/76; PULSE 92; RESP 22; O2SAT 99
[2024-07-12 14:13] VITALS: BP 142/67; PULSE 98; RESP 20; TEMP 36.6; O2SAT 97
== END 2024-07-12 14:19 ==
PROVIDERS: Emergency Provider Emergency Medicine; PCP Internal Medicine Pulmonary Disease
DX: M25.552 Pain in left hip (principal); M25.551 Pain in right hip; J44.9 Chronic obstructive pulmonary disease, unspecified; F32.A Depression, unspecified; E03.9 Hypothyroidism, unspecified; G47.30 Sleep apnea, unspecified; W18.30XA Fall on same level, unspecified, initial encounter
CPT/HCPCS: 36415; 70450; 73521; 80053; 81001; 82550; 85025; 96361; 96374; 99284; J2270; J7030

== ENCOUNTER 2024-08-16 09:54 | Outpatient (CLI) | payer MEDICARE, SELFPAY ==
--- NOTE | ~2024-08-16 | MR_ITS ---
EXAMINATION: MR lumbar spine wo con DATE: 08/16/2024 10:40 INDICATION: Lumbosacral radiculopathy. TECHNIQUE: Magnetic resonance imaging (MRI) of the lumbar spine was performed without intravenous con trast. COMPARISON: None FINDINGS: There is 26 degrees levoscoliosis of thoracolumbar spine. There is a chronic compression fr acture of T12 with 1/5 loss of height. There is a chronic burst fracture of L1 with 2/5 loss of heigh t and retropulsion of bone 2 mm into central spinal canal. There is a chronic compression fracture of L4 with 1/5 loss of height. There is severely decreased disc height at L2-L3. There is ligament and flavum hypertrophy at the disc levels from L2-L3 through L5-S1. The distal spinal cord signal intensi ty is normal. The conus medullaris is at L1-L2. The following disc levels are specifically discussed: L1-L2: The disc is bulging. There is severe right and mild left facet joint osteoarthritis. There is mild bilateral neural foraminal stenosis. There is mild central canal stenosis. L2-L3: The disc is bulging. There is severe bilateral facet joint osteoarthritis. There is mild bilat eral neural foraminal stenosis. There is mild central canal stenosis. L3-L4: The disc is bulging. There is severe bilateral facet joint osteoarthritis. There is mild bilat eral neural foraminal stenosis. There is mild central canal stenosis. L4-L5: The disc is bulging. There is moderate and severe left facet joint osteoarthritis. There is mi ld bilateral neural foraminal stenosis. There is mild central canal stenosis. L5-S1: The disc is bulging. There is moderate bilateral facet joint osteoarthritis. There is mild rig ht neural foraminal stenosis. There is mild central canal stenosis. IMPRESSION: 1. Severe lumbar spondylosis. 2. Thoracolumbar levoscoliosis. Reviewed, dictated and finalized at location A. [employer]
== END 2024-08-16 09:55 | disposition home or self-care (01) ==
PROVIDERS: PCP Internal Medicine
DX: M43.06 Spondylolysis, lumbar region (principal); M41.85 Other forms of scoliosis, thoracolumbar region
CPT/HCPCS: 72148

== ENCOUNTER 2024-09-17 10:18 | Emergency (ER) | payer MEDICARE, SELFPAY ==
[2024-09-17 10:30] VITALS: BP 149/63; PULSE 93; RESP 16; TEMP 36.3; O2SAT 91
--- NOTE | 2024-09-17 10:43 | ED.FEMALEGU ---
HPI - Female Genitourinary General Chief complaint: Urogenital-Female Stated complaint: UTI SYMPTOMS Time Seen by Provider: 09/17/24 10:28 Source: patient, family (Daughter) and RN notes reviewed Mode of arrival: ambulatory (With walker) Limitations: no limitations History of Present Illness HPI Narrative: Patient presents today complaining of dysuria, frequency, and hematuria since last night. Denies fever or abdominal pain. No [id number] treatment prior to arrival. Patient also was on her hands and knees reaching underneath the bed yesterday and felt a pull in her left lateral rib area leading to intermittent pain in this area. Denies shortness of breath. Pain is only present when she takes a deep breath. Related Data Home Medications ?Medication ?Instructions ?Recorded ?Confirmed ?Last Taken ?Type diltiazem HCl 180 mg capsule,24 180 mg PO DAILY 10/11/19 05/05/24 05/05/24 History hr,extended release 0800 hydroxyurea 500 mg capsule 500 mg PO DAILY 10/11/19 05/05/24 04/15/23 History polyethylene glycol 3350 17 17 gm PO DAILY 10/11/19 05/05/24 04/15/23 History gram/dose oral powder (Miralax) sertraline 100 mg tablet 100 mg PO DAILY 10/11/19 05/05/24 04/15/23 History oxygen-air delivery systems 07/07/21 05/06/24 Unknown History ferrous sulfate 325 mg (65 mg 325 mg PO DAILY 04/15/23 05/05/24 05/05/24 History iron) tablet (FeroSul) 0800 albuterol sulfate 90 mcg/actuation 2 inh inhalation Q6H PRN Wheezing 07/13/23 05/05/24 Unknown History aerosol inhaler mecobalamin (vitamin B12) 1,000 1,000 mcg PO DAILY 02/09/24 05/05/24 Unknown History mcg chewable tablet fluticasone fur. 100 mcg-umeclid 1 inh inhalation DAILY 05/05/24 05/05/24 05/05/24 History 62.5 mcg-vilant 25 mcg 0800 inhalat.powder (Trelegy Ellipta) hydrocodone 5 mg-acetaminophen 325 1 tablet PO Q6H PRN Pain (Scale 05/05/24 05/05/24 Unknown History mg tablet Score 4-6) Allergies Allergy/AdvReac Type Severity Reaction Status Date / Time cephalexin Allergy Mild rash Verified 09/17/24 11:00 simvastatin Allergy Muscle Pain Verified 09/17/24 10:33 Review of Systems Review of Systems: CONSTITUTIONAL: Denies body aches, fever, chills, or sweats. EYES: Denies visual changes, redness, or discharge. ENT: Denies rhinorrhea, congestion, sore throat, or otalgia. CARDIOVASCULAR: Denies chest pain, palpitations, or edema. RESPIRATORY: Denies cough or dyspnea. + left lateral rib pain GASTROINTESTINAL: Denies abdominal pain, nausea, vomiting, or diarrhea. GENITOURINARY: + dysuria, hematuria, frequency SKIN: Denies rash, itching, or wounds. MUSCULOSKELETAL: Denies back pain, joint pain, or myalgia. NEUROLOGIC: Denies headache, numbness, tingling, or weakness. PSYCH: Denies depression or anxiety. 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 Diastolic dysfunction Echocardiogram March 2023 Chronic hypoxic respiratory failure, on home oxygen therapy Hypothyroidism (~1982) Cystocele Mass of left cardiac ventricle Hearing loss, bilateral Vaginal prolapse Vaginal delivery X2 05/24/56 Female 7lbs 6oz 06/01/59 Male 7lbs 5oz Parathyroid cyst Diverticulosis 1997 COPD (chronic obstructive pulmonary disease) 2015 Pneumonia 1995, 2014 Cancer of blood vessel Irritable bowel syndrome 1993 Depression 2015 Hyperlipidemia 1996 Acid reflux 1989 COPD with asthma MARCELINO (obstructive sleep apnea) Surgical History Surgical History H/O: hysterectomy 1982 History of bladder surgery 1993 Family History Family History Father Family history of thyroid disease, Onset Age: 89 Cerebrovascular accident, Onset Age: 89 Mother Family history of malignant neoplasm of stomach, Onset Age: 54 Social History Social History Social History: The patient is . Her is currently on hospice for the last couple of weeks. He she is still living in assisted living. Code status: DNR/DNI Healthcare power of compliance attorney: Michelle Hou (daughter) Smoking packs per day: 1 Smoking cigarettes per day: 20.0 Years smoked: 34 Smoking pack-years: 34.00 Smoking status: Former smoker Second hand tobacco smoke exposure: No Smoking end date: 10/04/86 Alcohol intake: never Substance use: never Substance use type: does not use Do You Feel Safe in your Home?: Yes Lack of Transportation: No Lack of Food: Never True Current Housing: I Have Housing Concerned About Future Housing: No Difficulty Paying Gas/Electric Bills: No Difficulty Paying for Meds: No Currently Unemployed: No Education: Associate Degree Difficulty w/ Childcare or Family Care: No Living arrangements: assisted living Spiritual care concerns: No Comments At time of signature, I have reviewed and agree with nursing past medical, surgical, social and family history unless otherwise noted. Please see nursing chart for further information. There is no relevant family history pertinent to the presenting complaint Exam Narrative: GENERAL: Chronically ill-appearing, well-nourished, and in no acute distress. Wears home O2 HEAD: Normocephalic, atraumatic. EYES: EOMI. No redness or drainage. Conjunctivae normal. ENT: Mucous membranes pink and moist. NECK: Normal AROM. CHEST: No respiratory distress. Clear to auscultation. HEART: Regular rate and rhythm. No murmur appreciated. ABDOMEN: Soft, nontender, nondistended, normal active bowel sounds. EXTREMITIES: Normal range of motion. No edema. SKIN: Warm, dry, no rash. Capillary refill normal. Normal skin turgor. NEURO: No focal deficits. Alert and oriented x3. Gait steady with walker. PSYCH: Normal affect. No signs of depression or anxiety. Course Course Emergency Course: Unable to provide urine sample at time of exam. Water provided to patient. Level of Care: Express Care Visit Vital Signs Vital signs: Vital Signs Temperature 97.3 F L 09/17/24 10:30 Pulse Rate 93 09/17/24 10:30 Respiratory Rate 16 09/17/24 10:30 Blood Pressure 149/63 H 09/17/24 10:30 Pulse Oximetry 91 09/17/24 10:30 Temperature 97.3 F L 09/17/24 10:30 Pulse Rate 93 09/17/24 10:30 Respiratory Rate 16 09/17/24 10:30 Blood Pressure 149/63 H 09/17/24 10:30 Pulse Oximetry 91 09/17/24 10:30 Reviewed MDM - Female Genitourinary MDM Narrative Medical decision making narrative: Urine culture is consistent with infection. Prescription for Augmentin sent to pharmacy. Anticipatory guidance given. Differential Diagnosis Differential diagnosis: Likely urinary tract infection, vaginitis and cystitis Lab Data Attestation: I reviewed the patient's lab results. Critical Care Time Critical Care Time Critical Care Time: No Discharge Plan Discharge Clinical Impression: Acute UTI Chest wall muscle strain Qualifiers: Encounter type: initial encounter Qualified Code(s): S29.011A - Strain of muscle and tendon of front wall of thorax, initial encounter Patient Disposition: Home, Self-Care Condition: Stable Instructions: Antibiotic Form, Urinary Tract Infection in Women (ED) Additional Instructions: Your urine shows infection today. Take Augmentin as prescribed until gone. Your urine will be sent of for a culture to identify what type of bacteria is causing your infection. If the culture shows that your medication will not get rid of your infection, you will be notified and a new antibiotic will be called in for you. If your symptoms worsen to include fever, sweats, chills, nausea, vomiting, severe abdominal or back pain, please go to the ER for further evaluation. Take Tylenol for your rib strain. Your blood pressure was elevated above 120/80 today at Urgent Care. This puts you above the threshold for follow up. Please schedule a followup visit with your personal physician as soon as possible, for further evaluation and treatment. Even blood pressure exceeding 120/80 may indicate pre-hypertension. Patient Language: Luxembourgish Prescriptions: New amoxicillin-pot clavulanate 875-125 mg tablet 1 tablet PO Q12H 7 Days Qty: 14 0RF No Action (DME) oxygen-air delivery systems Device See Rx Instructions .Route Rx Instructions: 3L O2 @ home mecobalamin (vitamin B12) 1,000 mcg tablet,chewable 1,000 mcg PO DAILY diltiazem HCl 180 mg capsule,extended release 24 hr 180 mg PO DAILY hydroxyurea 500 mg capsule 500 mg PO DAILY Rx Instructions: take 2 capsules every other day alternating with 1 capsule every other day as directed polyethylene glycol 3350 [Miralax] 17 gram/dose powder 17 gm PO DAILY sertraline 100 mg tablet 100 mg PO DAILY albuterol sulfate 90 mcg/actuation HFA aerosol inhaler 2 inh inhalation Q6H PRN (Reason: Wheezing) ferrous sulfate [FeroSul] 325 mg (65 mg iron) tablet 325 mg PO DAILY hydrocodone-acetaminophen 5-325 mg tablet 1 tablet PO Q6H PRN (Reason: Pain (Scale Score 4-6)) Trelegy Ellipta 100-62.5-25 mcg Blister With Device 1 inh INHALATION DAILY clopidogrel [Plavix] 75 mg tablet 75 mg PO DAILY Qty: 30 0RF rosuvastatin [Crestor] 40 mg tablet 40 mg PO DAILY Qty: 30 0RF nifedipine 30 mg tablet extended release 30 mg PO DAILY Qty: 30 0RF levothyroxine 112 mcg tablet 112 mcg PO DAILY Qty: 90 1RF Follow-up/Referrals: Sarita,MD Steven [Primary Care Provider] - Time of Disposition: 11:06
[2024-09-17 11:00] LABS: EDUAAPPEAR Cloudy; EDUABILI Negative (Negative); EDUABLOOD 3+ (Negative); EDUACOLOR1 Dark; EDUAGLUCOSE 1+ (Negative); EDUAKETONE Negative (Negative); EDUALEUKO 1+ (Negative); EDUANITRATE Positive (Negative); EDUAPH 5.5; EDUAPROTEIN 3+ (Negative); EDUASPGRAVITY 1.025; EDUAUROBILI 0.2
== END 2024-09-17 11:23 | disposition home or self-care (01) ==
PROVIDERS: Emergency Provider Nurse Practitioner; PCP Internal Medicine
DX: N39.0 Urinary tract infection, site not specified (principal); B96.20 Unspecified Escherichia coli [E. coli] as the cause of diseases classified elsewhere; S29.011A Strain of muscle and tendon of front wall of thorax, initial encounter; X50.0XXA Overexertion from strenuous movement or load, initial encounter; D47.1 Chronic myeloproliferative disease; E03.9 Hypothyroidism, unspecified; J44.9 Chronic obstructive pulmonary disease, unspecified; E78.5 Hyperlipidemia, unspecified; K21.9 Gastro-esophageal reflux disease without esophagitis; Z87.891 Personal history of nicotine dependence; Z85.79 Personal history of other malignant neoplasms of lymphoid, hematopoietic and related tissues
CPT/HCPCS: 81003; 87077; 87086; 87186; 99213; G0463